=== PATIENT | female | born 1995 | race Hispanic/Latino ===

== ENCOUNTER 2019-04-21 23:50 | Emergency (ER) | payer MEDICAID, OTHER ==
[2019-04-22] MEDS ORDERED: LIDOCAINE HCL-MPF 1% 2ML VIAL ONE (00:06)
== END 2019-04-22 00:35 | disposition home or self-care (01) ==
LOC: EDH 23:50
DX: S61.304A Unspecified open wound of right ring finger with damage to nail, initial encounter (principal); S63.694A Other sprain of right ring finger, initial encounter; X58.XXXA Exposure to other specified factors, initial encounter; Y93.89 Activity, other specified; Y92.488 Other paved roadways as the place of occurrence of the external cause; Y99.8 Other external cause status
CPT/HCPCS: 73140; 99284; J3490